=== PATIENT | male | born 1980 | race African-American/Black ===

== ENCOUNTER 2021-02-24 23:53 | Emergency (ER) | payer OTHER ==
[~2021-02-24] VITALS: Ht 188 cm; Wt 161.0 kg
[2021-02-25] MEDS ORDERED: NORVASC10 MG PO (00:04)
[2021-02-25] MEDS ORDERED: LISINOPRIL20 MG PO (00:04)
[2021-02-25 00:35] LABS: ABSOLUTE NEUTROPHILS 5.5 thou/uL (1.4-8.2); BASOPHILS 0.9 % (0.0-2.0); EOSINOPHILS 2.7 % (0.0-3.0); HEMATOCRIT 42.9 % (42.0-52.0); HEMOGLOBIN 14.3 gm/dL (14.0-18.0); LYMPHOCYTES 29.9 % (24.0-44.0); MCH 27.2 pg (26.0-34.0); MCHC 33.2 g/dL (28.0-37.0); MCV 81.8 fL (80.0-100.0); MONOCYTES 8.9 % (1.0-8.0); PLATELET COUNT 203 thou/uL (150-400); POLYS 57.6 % (36.0-66.0); RBC 5.25 mil/uL (4.50-6.00); RDW 15.4 % (10.5-14.5); WBC 9.6 thou/uL (4.0-11.0)
[2021-02-25 00:44] LABS: ANION GAP 11 mmol/L (7-16); BUN 15 mg/dL (7-18); CALCIUM 8.9 mg/dL (8.5-10.1); CHLORIDE 105 mmol/L (98-107); CO2 30 mmol/L (21-32); CREATININE 1.4 mg/dL (0.7-1.3); GLUCOSE 119 mg/dL (74-106); POTASSIUM 3.8 mmol/L (3.5-5.1); SODIUM 146 mmol/L (136-145)
[2021-02-25 00:58] LABS: ALBUMIN 3.9 g/dL (3.4-5.0); LIPASE 202 U/L (73-393); SGOT 37 U/L (15-37); SGPT 42 U/L (30-65); TOTAL BILIRUBIN 0.3 mg/dL (0.2-1.0); TOTAL PROTEIN 7.8 g/dL (6.4-8.2); TROPONIN-I <0.06 ng/mL (<0.06)
[2021-02-25 02:33] VITALS: BP 145/83
--- NOTE | 2021-02-27 09:17 | EKG ---
[address] [place] [address] ELECTROCARDIOGRAM REPORT Name: DAINA CHERRY Room #: [facility]P [id number] Admission: 02/24/21 Attend Phys: Discharge: 02/25/21 Date of : 80 Report #: [id number] [facility] ED Test Date: 2021-02-25 Test Time: 00:00:15 Pat Name: DAINA CHERRY Department: Room: Gender: [employer] Director: KARI : 1980 Requested By: Yady Harvey Order Number: [id number] MD: Augustus Carcamo Measurements Intervals [place] Rate: 77 P: IA: QRS: 4 QRSD: 97 T: 39 QT: 378 QTc: 428 Interpretive Statements Sinus rhythm Nonspecific ST segment abnormality Baseline wander in lead(s) V1,V2 No previous ECG available for comparison Electronically Signed On 02-27-2021 9:17:14 CDT by Augustus Carcamo [email or web address] <ELECTRONICALLY SIGNED> By: Augustus Carcamo MD, [facility] 02/27/21 0917 0000 0000 Augustus Carcamo MD, FACC /EPI
== END 2021-02-25 02:33 | disposition home or self-care (01) ==
LOC: ER 23:53
PROVIDERS: Emergency Medicine
DX: R07.89 Other chest pain (principal); I10 Essential (primary) hypertension; Z79.899 Other long term (current) drug therapy